=== PATIENT | male | born 2000 | race Caucasian/White ===

== ENCOUNTER 2024-03-25 19:09 | Emergency (ER) | payer BC, SELFPAY ==
[2024-03-25 19:15] VITALS: BP 130/99
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
--- NOTE | 2024-03-25 22:04 | ED.GENMED ---
History of Present Illness
General
Chief Complaint: Crisis Evaluation
Source: patient and family
Exam Limitations: none
Time Seen by Provider: 03/25/24 20:34
Nursing documentation reviewed up to this point in time: agreed with
History of Present Illness
History of Present Illness:
23-year-old male presenting to the emergency department today with concerns of anxiety and requesting Prozac that he has been on the past but was taken off recently and unable to follow-up with a psychiatrist. Does have an appointment in 2 weeks.
Denies any thoughts of harming himself or others. Appears well kempt on examination.
Review of Systems
Review of Systems
Allergies reviewed?: Yes
All Other Systems: ROS reviewed and negative except as documented in HPI and ROS
Phy Exam
Physical Exam
Physical Exam:
GENERAL: Alert , in no apparent distress
EYE: pupils equal and reactive
NECK: Supple, no significant adenopathy.
ENT: o/p clr, mmm.
CARDIAC: Regular rate and rhythm .
LUNGS: Clear breath sounds bilaterally, no acute respiratory distress, no wheezes/rales/rhonchi
ABDOMEN: Soft, without focal tenderness, no r/g, no cvat
NEUROLOGICAL: Alert and oriented, no focal neuro deficits
SKIN: Warm and dry, skin intact.
MUSCULOSKELETAL: No edema, well perfused.
PSYCH: Normal and appropriate interaction.
Course
Orders/Labs/Results
Orders:
Orders
03/25/24 19:50
Crisis Consult Urgent
Reason for Consult: anxiety, OCD, ADHD
Vital Signs
Initial and Last Documented VS:
Initial Vital Signs
Temp Pulse Resp BP Pulse Ox
98.3 F 111 17 130/99 100
03/25/24 19:15 03/25/24 19:15 03/25/24 19:15 03/25/24 19:15 03/25/24 19:15
Last Documented Vital Signs
Temp Pulse Resp BP Pulse Ox
98.2 F 86 20 127/85 98
03/26/24 00:28 03/26/24 00:28 03/26/24 00:28 03/26/24 00:28 03/26/24 00:28
MDM/Problems Addressed
MDM/Problems Addressed:
23-year-old male presenting to the emergency department with with long psychiatric history. He was requesting being placed back on Prozac that he has been on the past and had significant symptom improvement. Denies any thoughts of harming himself
or others. No indication for 302. Patient written for prescription for Prozac otherwise stable for discharge return precautions given.
*Critical Care Note
Total Time (30-74mins, 75-104mins- exclusive of procedures): Not Applicable
ED Attending Note
-
Portions of this chart may have been created with voice recognition software.� Occasional wrong word or��sound alike� substitutions may have occurred due to the inherent limitations of voice recognition software.
Discharge Plan
Departure
Patient Disposition: Home (Routine Discharge)
Date of Disposition: 03/25/24
Time of Disposition: 22:58
Patient with high blood pressure during this ER visit?: No
Condition: Good
Covid-19: Not Applicable
Discharge Problem:
Anxiety
Instructions: Anxiety, Adult (DC)
Prescriptions:
New
fluoxetine [Prozac] 10 mg capsule
10 mg PO DAILY 15 Days Qty: 15 0RF
Referrals:
UNKNOWN - PT DOES,NOT KNOW [Family Provider] -
Activity Restrictions/Additional Instructions:
You came to the emergency department today with concerns of ongoing anxiety and additional symptoms. You are written for prescription for Prozac until follow-up. Return to the emergency department for any worsening, new or concerning symptoms.
Interventions
Interventions:
*Risk Screen - Suicide Last Done: 03/25/24 19:24
*General Assessment Last Done: 03/25/24 19:24
*Neglect/Abuse Screening Last Done: 03/25/24 19:24
ED- Fall Risk Assessment Last Done: 03/25/24 19:24
*ED COVID-19 Vaccine History Last Done: 03/25/24 19:24
*Nursing Disposition Last Done: 03/26/24 00:28
ED-Psychological Assessment Last Done: 03/25/24 19:24
Discharge Date and Time
Discharge Date/Time: 03/26/24 00:29
Print Language: PORTUGUESE
[2024-03-25 22:25] VITALS: BP 127/88
[2024-03-26 00:27] VITALS: BP 127/85
[2024-03-26 00:28] VITALS: BP 127/85
== END 2024-03-26 00:29 | disposition home or self-care (01) ==
LOC: EMR 19:09
PROVIDERS: EMERGENCY PHYSICIAN Emergency Medicine
DX: F41.9 Anxiety disorder, unspecified (principal); F42.9 Obsessive-compulsive disorder, unspecified; F90.9 Attention-deficit hyperactivity disorder, unspecified type
CPT/HCPCS: 99283